=== PATIENT | male | born 1960 | race Caucasian/White ===

== ENCOUNTER 2023-11-04 16:36 | Inpatient (IN) | payer SELFPAY ==
[~2023-11-04] VITALS: Ht 175.3 cm; Wt 72.3 kg
[2023-11-04] MEDS ORDERED: AMPICILLIN SOD/SULBACTAM NA 3 G in SODIUM CHLORIDE 0.9% 100 ML IV SCH (17:30)
[2023-11-04 17:55] LABS: HEMATOCRIT. 38.9 % (42.0-52.0); HEMOGLOBIN. 13.4 g/dL (14.0-18.0); MEAN CORPUSCULAR HEMOGLOBIN 32.1 pg (28.0-32.0); MEAN CORPUSCULAR HGB CONC 34.4 g/dL (31.0-37.0); MEAN CORPUSCULAR VOLUME 93.1 fL (80.0-94.0); MEAN PLATELET VOLUME 9.3 fl (7.4-10.4); PLATELET 258 x1000/uL (130-400); RED BLOOD CELL COUNT 4.17 mill/uL (4.7-6.1); RED CELL DISTRIBUTION WIDTH 13.6 % (11.6-14.6); WHITE BLOOD COUNT 24.4 x1000/uL (4.5-11.0)
[2023-11-04 17:58] LABS: DIFFERENTIAL COMMENT 1
[2023-11-04 18:05] LABS: ALANINE AMINOTRANSFERASE 30 IU/L (10-49); ALBUMIN 4.3 g/dL (3.2-4.8); ASPARTATE AMINOTRANSFERASE 44 IU/L (<34); BILIRUBIN TOTAL 0.9 mg/dL (0.1-1.0); CALCIUM 8.8 mg/dL (8.7-10.4); CARBON DIOXIDE 21 mEq/L (21-32); CHLORIDE 91 mEq/L (98-107); CREATININE 2.2 mg/dL (0.6-1.3); GLUCOSE 109 mg/dL (70-105); POTASSIUM 3.7 mEq/L (3.5-5.1); PROTEIN TOTAL 8.2 g/dL (6.0-8.3); SODIUM 122 mEq/L (136-145); UREA NITROGEN BLOOD 51 mg/dL (9-23)
[2023-11-04 18:09] LABS: INR 1.3; PROTHROMBIN TIME 14.4 sec (9.6-11.0)
[2023-11-04 18:40] LABS: PLATELET ESTIMATE NORMAL
[2023-11-04 18:41] LABS: GIANT PLATELETS FEW
[2023-11-04 20:41] LABS: CLARITY URINE CLOUDY (CLEAR); COLOR URINE DARK YELLOW (YELLOW); GLUCOSE URINE NEGATIVE (NEGATIVE); KETONES URINE TRACE (NEGATIVE); LEUKOCYTE ESTERASE URINE NEGATIVE (NEGATIVE); NITRITE URINE NEGATIVE (NEGATIVE); OCCULT BLOOD URINE 1+ (NEGATIVE); PROTEIN URINE 1+ (NEGATIVE); SPECIFIC GRAVITY URINE 1.023 (1.005-1.030)
[2023-11-04 21:04] LABS: BACTERIA URINE 2+; FINE GRANULAR CASTS URINE 0-5 /lpf; SQUAMOUS EPITHELIAL CELL URINE FEW /lpf (RARE/1+); WBC URINE 0-2 /hpf (0-2)
[2023-11-04 21:06] LABS: AMORPHOUS SEDIMENT URINE 1+ /lpf
[2023-11-04] MEDS: VANCOMYCIN 1G PREMIX 200 ML IV ONE (23:12)
[2023-11-04] MEDS: SODIUM CHLORIDE 0.9% 1000ML BAG (SEPSIS BOLUS) IV ONE (23:14)
[2023-11-04] MEDS: VANCOMYCIN 1G PREMIX 200 ML IV NR (23:35)
[2023-11-05] VITALS (7 sets, daily range): BP systolic 125–176; BP diastolic 61–84; PULSE 65–91; RESP 18–20; TEMP 88.2–100
[2023-11-05] MEDS ORDERED: VANCOMYCIN 1G PREMIX 200 ML IV SCH (00:45)
[2023-11-05] MEDS: SODIUM CHLORIDE 0.9% 1,000 ML IV SCH (00:45)
[2023-11-05] MEDS ORDERED: ACETAMINOPHEN 325MG TABLET PO PRN (00:45)
[2023-11-05] MEDS ORDERED: ONDANSETRON HCL 4MG/2ML INJ IV PRN (00:45)
[2023-11-05] MEDS ORDERED: DIPHENHYDRAMINE 50MG/ML VIAL IV PRN (00:45)
[2023-11-05] MEDS: PIPERACILLIN/TAZO 3.375G/50ML 50 ML IV SCH (07:07)
[2023-11-05] MEDS: CLONIDINE 0.1MG TABLET PO PRN (08:27)
[2023-11-05] MEDS: ENOXAPARIN 40MG/0.4ML SYR SUBCUT SCH (08:27)
[2023-11-05] MEDS: VANCOMYCIN 500MG/100ML IV NR (12:34)
[2023-11-05] MEDS: ACETAMINOPHEN 325MG TABLET PO PRN (18:34)
[2023-11-06] VITALS: BP 141/74; PULSE 87; RESP 19; TEMP 97.7
[2023-11-06 04:00] VITALS: BP 145/76; PULSE 92; RESP 19; TEMP 97.5
[2023-11-06 06:59] LABS: CALCIUM 7.7 mg/dL (8.7-10.4); CARBON DIOXIDE 24 mEq/L (21-32); CHLORIDE 95 mEq/L (98-107); GLUCOSE 78 mg/dL (70-105); SODIUM 128 mEq/L (136-145); UREA NITROGEN BLOOD 30 mg/dL (9-23)
[2023-11-06 08:00] VITALS: BP 114/54; PULSE 87; RESP 17; TEMP 98.8
[2023-11-06] MEDS: VANCOMYCIN 1GM/200ML PMX (BAXTER) IV SCH (11:16)
[2023-11-06] MEDS: POTASSIUM CHLORIDE 20MEQ TABLET SR PO SCH (11:18)
[2023-11-06 12:00] VITALS: BP 145/62; PULSE 84; RESP 19; TEMP 97.9
[2023-11-06 16:00] VITALS: BP 124/67; PULSE 82; RESP 19; TEMP 97.9
[2023-11-06] MEDS: MAGNESIUM 1 G PREMIX 100 ML IV SCH (18:52)
[2023-11-06 20:00] VITALS: BP 151/65; PULSE 87; RESP 19; TEMP 97.9
[2023-11-06] MEDS: IBUPROFEN 600MG TABLET PO PRN (23:41)
[2023-11-07 04:00] VITALS: BP 133/65; PULSE 72; RESP 18; TEMP 96.6
[2023-11-07 08:00] VITALS: BP 130/70; PULSE 67; RESP 18; TEMP 96.9
[2023-11-07 12:00] VITALS: BP 144/63; PULSE 72; RESP 19; TEMP 97.7
[2023-11-07 16:00] VITALS: BP 125/57; PULSE 78; RESP 18; TEMP 98.4
[2023-11-07 20:00] VITALS: BP 104/56; PULSE 87; RESP 18; TEMP 96.9
[2023-11-08] VITALS: BP 124/55; PULSE 87; RESP 18; TEMP 97.9
[2023-11-08 04:00] VITALS: BP 127/54; PULSE 79; RESP 19; TEMP 97.5
[2023-11-08 08:00] VITALS: BP 142/65; PULSE 67; RESP 19; TEMP 97.1
[2023-11-08 08:47] LABS: CARBON DIOXIDE 24 mEq/L (21-32); CHLORIDE 102 mEq/L (98-107); CREATININE 0.9 mg/dL (0.6-1.3); GLUCOSE 69 mg/dL (70-105); POTASSIUM 3.9 mEq/L (3.5-5.1); SODIUM 135 mEq/L (136-145); UREA NITROGEN BLOOD 17 mg/dL (9-23)
[2023-11-08 12:00] VITALS: BP 151/74; PULSE 77; RESP 19; TEMP 97.2
[2023-11-08 16:00] VITALS: BP 157/70; PULSE 83; RESP 19; TEMP 97.1
[2023-11-08 20:00] VITALS: BP 152/69; PULSE 82; RESP 17; TEMP 98.5
[2023-11-09] VITALS: BP 134/62; PULSE 89; RESP 16; TEMP 97.5
[2023-11-09 04:00] VITALS: BP 138/80; PULSE 75; RESP 18; TEMP 99.4
[2023-11-09 08:00] VITALS: BP 138/59; PULSE 73; RESP 19; TEMP 97.7
[2023-11-09] MEDS ORDERED: IOHEXOL-350 100 ML BOTTLE ONE (11:43)
[2023-11-09 12:00] VITALS: BP 144/63; PULSE 78; RESP 18; TEMP 97
[2023-11-09 16:00] VITALS: BP 139/55; PULSE 72; RESP 19; TEMP 96.8
[2023-11-09 20:00] VITALS: BP 144/57; PULSE 83; RESP 19; TEMP 97.6
[2023-11-09] MEDS: ZOLPIDEM TARTRATE 5MG TABLET PO PRN (21:21)
[2023-11-10] VITALS: BP 154/63; PULSE 80; RESP 17; TEMP 98.6
[2023-11-10] MEDS: DEXT 5%/0.9% NACL 1,000 ML IV SCH (00:33)
[2023-11-10 04:00] VITALS: BP 133/82; PULSE 66; RESP 20; TEMP 97.7
[2023-11-10 08:00] VITALS: BP 147/72; PULSE 70; RESP 18; TEMP 96.6
[2023-11-10] MEDS ORDERED: HEPARIN 1000 UNITS/ML 10ML ONE (10:15)
[2023-11-10] MEDS ORDERED: IODIXANOL 320MG/ML 100 ML BOTTLE IV ONE ×2 (10:15→11:51)
[2023-11-10] MEDS ORDERED: LIDOCAINE HCL 1% 20ML VIAL (Pyxis) INJ ONE (10:17)
[2023-11-10] MEDS ORDERED: FENTANYL CITRATE/PF 50MCG/ML 2ML VIAL ONE (10:55)
[2023-11-10] MEDS ORDERED: MIDAZOLAM HCL 2 MG/2 ML VIAL ONE (10:56)
[2023-11-10] MEDS ORDERED: HYDRALAZINE 20MG/ML VIAL ONE (11:21)
[2023-11-10] MEDS ORDERED: DIPHENHYDRAMINE 50MG/ML VIAL ONE (11:25)
[2023-11-10] MEDS: CLOPIDOGREL 75MG TABLET PO SCH (14:51)
[2023-11-10 16:00] VITALS: BP 141/65; PULSE 75; RESP 20; TEMP 97.9
[2023-11-10 20:00] VITALS: BP 116/47; PULSE 71; RESP 18; TEMP 98.2
[2023-11-10] MEDS: CEFAZOLIN 2GM/100ML 100 ML IV SCH (21:45)
[2023-11-11] VITALS: BP 137/53; PULSE 70; RESP 18; TEMP 97.5
[2023-11-11 04:00] VITALS: BP 125/48; PULSE 70; RESP 19; TEMP 97.8
[2023-11-11 08:00] VITALS: BP 111/63; PULSE 63; RESP 19; TEMP 97.9
[2023-11-11 12:00] VITALS: BP 175/65; PULSE 64; RESP 20; TEMP 96.7
[2023-11-11 15:00] VITALS: BP 145/77; PULSE 75; RESP 18; TEMP 98.6
[2023-11-11 15:18] VITALS: BP 145/77; PULSE 75; TEMP 98.6; O2SAT 99
== END 2023-11-11 16:42 | disposition home or self-care (01) | DRG 710 ==
LOC: ER 16:36 → EDBEDREQTM 21:00 → EDBEDREQ 21:00 → 6EST 11-05 01:06
PROVIDERS: ADMIT Internal Medicine; ATTEND Internal Medicine
PROC: 04CL3ZZ Extirpation of Matter from Left Femoral Artery, Percutaneous Approach (ICD-10-PCS; principal; 2023-11-10)
PROC: 04CN3ZZ Extirpation of Matter from Left Popliteal Artery, Percutaneous Approach (ICD-10-PCS; 2023-11-10)
PROC: B41G1ZZ Fluoroscopy of Left Lower Extremity Arteries using Low Osmolar Contrast (ICD-10-PCS; 2023-11-10)
PROC: 047L3DZ Dilation of Left Femoral Artery with Intraluminal Device, Percutaneous Approach (ICD-10-PCS; 2023-11-10)
PROC: 047N3DZ Dilation of Left Popliteal Artery with Intraluminal Device, Percutaneous Approach (ICD-10-PCS; 2023-11-10)
DX: A41.9 Sepsis, unspecified organism (principal); E87.1 Hypo-osmolality and hyponatremia; L03.116 Cellulitis of left lower limb; E87.6 Hypokalemia; B95.61 Methicillin susceptible Staphylococcus aureus infection as the cause of diseases classified elsewhere; Z20.822 Contact with and (suspected) exposure to COVID-19; I70.202 Unspecified atherosclerosis of native arteries of extremities, left leg; L97.528 Non-pressure chronic ulcer of other part of left foot with other specified severity; Z72.0 Tobacco use; Z79.02 Long term (current) use of antithrombotics/antiplatelets; Z79.82 Long term (current) use of aspirin
CPT/HCPCS: 36415; 73630; 75635; 80048; 80053; 80202; 81003; 82962; 83605; 83735; 84145; 85025; 85347; 87070; 87077; 87186; 87426; 93005; 93922; 93971; 99291; J0295; J0360; J0690; J1200; J1644; J1650; J2250; J2543; J3010; J3370; J3475; J3490; J7030; J7042; J7050; Q9967